=== PATIENT | male | born 1945 | race Asian ===

== ENCOUNTER 2016-11-12 00:54 | Observation (INO) | payer MEDICARE, OTHER ==
[2016-11-12] VITALS (8 sets, daily range): BP systolic 124–130; BP diastolic 68–86
[~2016-11-12] VITALS: Ht 177.8 cm; Wt 120.2 kg
[2016-11-12] MEDS ORDERED: TAMS0.4C31 PO (01:16)
[2016-11-12] MEDS ORDERED: FURO20TA4 PO (01:16)
[2016-11-12] MEDS ORDERED: WARF5TAB73 PO (01:17)
[2016-11-12] MEDS ORDERED: DOCU-150 PO (01:17)
[2016-11-12] MEDS ORDERED: FUROSEMIDE 40MG/4ML VIAL IV ONE (02:45)
[2016-11-12 02:55] LABS: BASOPHILS % 1.1 % (0.0-2.0); DIFFERENTIAL COMMENT 0; EOSINOPHILS % 4.9 % (0.0-5.0); HEMATOCRIT. 40.5 % (42.0-52.0); HEMOGLOBIN. 13.7 g/dL (14.0-18.0); LYMPHOCYTES % 29.6 % (20.0-50.0); MEAN CORPUSCULAR HEMOGLOBIN 31.9 pg (28.0-32.0); MEAN CORPUSCULAR HGB CONC 33.9 g/dL (31.0-37.0); MEAN CORPUSCULAR VOLUME 94.2 fL (80.0-94.0); MEAN PLATELET VOLUME 8.1 fl (7.4-10.4); MONOCYTES % 9.4 % (2.0-8.0); PLATELET 243 x1000/uL (130-400); RED CELL DISTRIBUTION WIDTH 21.4 % (11.6-14.6); WHITE BLOOD COUNT 5.7 x1000/uL (4.5-11.0)
[2016-11-12 03:10] LABS: ALANINE AMINOTRANSFERASE 24 IU/L (13-61); ALBUMIN 3.6 g/dL (3.4-5.0); ANION GAP 11; CALCIUM 8.9 mg/dL (8.5-10.1); CARBON DIOXIDE 30 mEq/L (21-32); CHLORIDE 102 mEq/L (98-107); INDEX HEMOLYSI 2 (1-3); INDEX ICTERIC 1 (1-4); INDEX LIPEMIC 1 (1-3); NT PRO B-TYPE NATRIURETIC PEP 80 pg/mL (5-125); TROPONIN I < 0.02 ng/mL (0.00-0.04); UREA NITROGEN BLOOD 17 mg/dL (7-21); eGFR > 60 mL/min (>60)
[2016-11-12] MEDS ORDERED: HYDROCODONE/ACETAMINOPHEN 5/325MG TABLET PO PRN (10:45)
[2016-11-12] MEDS ORDERED: ACETAMINOPHEN 325MG TABLET PO PRN (10:45)
[2016-11-12] MEDS ORDERED: CLONIDINE 0.1MG TABLET PO PRN (10:45)
[2016-11-12] MEDS ORDERED: IPRATROPIUM/ALBUTEROL 0.5-3(2.5)MG/3ML NEB INH PRN (10:45)
[2016-11-12] MEDS: FUROSEMIDE 40MG/4ML VIAL IV SCH (11:05)
[2016-11-12 12:40] LABS: PARTIAL THROMBOPLASTIN TIME 54.8 sec (24.0-34.0); PROTHROMBIN TIME 51.8 sec
[2016-11-12 13:11] LABS: ANION GAP 15; CALCIUM 9.3 mg/dL (8.5-10.1); CARBON DIOXIDE 28 mEq/L (21-32); CHLORIDE 100 mEq/L (98-107); INDEX HEMOLYSI 1 (1-3); INDEX ICTERIC 1 (1-4); INDEX LIPEMIC 1 (1-3); UREA NITROGEN BLOOD 17 mg/dL (7-21); eGFR > 60 mL/min (>60)
[2016-11-12 13:38] LABS: INR 4.9
[2016-11-12 14:15] LABS: CREATINE KINASE 400 IU/L (39-308); INDEX HEMOLYSI 1 (1-3); TROPONIN I < 0.02 ng/mL (0.00-0.04)
[2016-11-12 23:50] LABS: CREATINE KINASE 406 IU/L (39-308); INDEX HEMOLYSI 2 (1-3); TROPONIN I < 0.02 ng/mL (0.00-0.04)
[2016-11-13] VITALS: BP 113/71
[2016-11-13 04:00] VITALS: BP 110/80
[2016-11-13 06:35] LABS: BASOPHILS % 0.4 % (0.0-2.0); HEMATOCRIT. 40.3 % (42.0-52.0); HEMOGLOBIN. 13.7 g/dL (14.0-18.0); LYMPHOCYTES % 32.3 % (20.0-50.0); MEAN CORPUSCULAR HEMOGLOBIN 32.8 pg (28.0-32.0); MEAN CORPUSCULAR HGB CONC 33.9 g/dL (31.0-37.0); MEAN CORPUSCULAR VOLUME 96.7 fL (80.0-94.0); MEAN PLATELET VOLUME 8.2 fl (7.4-10.4); MONOCYTES % 11.1 % (2.0-8.0); NEUTROPHILS % 51.2 % (40.0-76.0); PLATELET 212 x1000/uL (130-400); RED BLOOD CELL COUNT 4.17 mill/uL (4.7-6.1); RED CELL DISTRIBUTION WIDTH 22.2 % (11.6-14.6); WHITE BLOOD COUNT 6.5 x1000/uL (4.5-11.0)
[2016-11-13 07:11] LABS: DIFFERENTIAL COMMENT 1
[2016-11-13 07:12] LABS: ADD RBC MORPHOLOGY YES
[2016-11-13 08:00] VITALS: BP 116/73
[2016-11-13 09:11] LABS: T4 FREE 1.44 ng/dL (0.76-1.46); THYROID STIMULATING HORMONE 2.4 uIU/mL (0.36-3.74)
[2016-11-13 10:00] LABS: INR 3.2; PROTHROMBIN TIME 33.7 sec
[2016-11-13] MEDS: FUROSEMIDE 40MG/4ML VIAL IV SCH (10:08)
[2016-11-13 12:00] VITALS: BP 130/80
[2016-11-13 13:44] LABS: ANISOCYTOSIS 2+
[2016-11-13 13:45] LABS: PLATELET ESTIMATE NORMAL
[2016-11-13 14:01] VITALS: BP 130/80
[2016-11-13] MEDS ORDERED: WARFARIN SODIUM 5MG TABLET PO SCH (18:00)
== END 2016-11-13 14:35 | disposition home or self-care (01) ==
LOC: ER 00:54 → 6WST 08:29 → INTOOBSV 08:29
PROVIDERS: ADMIT Internal Medicine; ATTEND Internal Medicine
DX: R60.0 Localized edema (principal); I50.9 Heart failure, unspecified; I48.91 Unspecified atrial fibrillation; L53.9 Erythematous condition, unspecified; N40.0 Benign prostatic hyperplasia without lower urinary tract symptoms
CPT/HCPCS: 36415; 71010; 73030; 73221; 80048; 80053; 80061; 82550; 83880; 84439; 84443; 84484; 85025; 85610; 85730; 93005; 93970; 96374; 96376; 97162; 99285; G0378; J1940

== ENCOUNTER 2019-07-02 21:46 | Emergency (ER) | payer OTHER ==
[~2019-07-02] VITALS: Ht 182.9 cm; Wt 137.0 kg
[~2019-07-02 21:46] MED LIST: DOCU-150 PO; FURO20TA4 PO; TAMS0.4C31 PO; WARF-53 PO
[2019-07-03 00:36] LABS: HEMOGLOBIN 12.6 g/dL (14.0-18.0); MEAN CORPUSCULAR HEMOGLOBIN 32.5 pg (28.0-32.0); MEAN CORPUSCULAR VOLUME 95.1 fL (80.0-94.0); PLATELET 273 x1000/uL (130-400); RED BLOOD CELL COUNT 3.89 mill/uL (4.7-6.1); RED CELL DISTRIBUTION WIDTH 21.9 % (11.6-14.6)
[2019-07-03 00:47] LABS: CHLORIDE 104 mEq/L (98-107)
[2019-07-03 01:18] LABS: INR 0.9; PARTIAL THROMBOPLASTIN TIME 26.8 sec (23.4-31.0); PROTHROMBIN TIME 9.6 sec (9.6-11.0)
[2019-07-03] MEDS ORDERED: HYDROCODONE/ACETAMINOPHEN 10/325MG TABLET PO NR (01:45)
[2019-07-03 02:12] VITALS: BP 154/70
== END 2019-07-03 02:14 | disposition home or self-care (01) ==
LOC: ER 21:46
DX: M25.562 Pain in left knee (principal); M25.561 Pain in right knee; W18.39XA Other fall on same level, initial encounter; Y93.89 Activity, other specified; Y92.89 Other specified places as the place of occurrence of the external cause; Y99.8 Other external cause status; Z79.899 Other long term (current) drug therapy
CPT/HCPCS: 36415; 73562; 85027; 86850; 86900; 99284

== ENCOUNTER 2019-08-15 05:44 | Emergency (ER) | payer OTHER ==
[~2019-08-15] VITALS: Ht 175.3 cm; Wt 143.0 kg
[2019-08-15] MEDS ORDERED: FUROSEMIDE 100MG/10ML VIAL IVP ONE (07:00)
[2019-08-15 07:20] LABS: EOSINOPHILS % 1.5 % (0.0-5.0); HEMATOCRIT. 35.1 % (42.0-52.0); HEMOGLOBIN. 11.9 g/dL (14.0-18.0); LYMPHOCYTES % 17.9 % (20.0-50.0); MEAN CORPUSCULAR HEMOGLOBIN 32.3 pg (28.0-32.0); MEAN CORPUSCULAR VOLUME 95.4 fL (80.0-94.0); MEAN PLATELET VOLUME 7.6 fl (7.4-10.4); NEUTROPHILS % 71.6 % (40.0-76.0); PLATELET 275 x1000/uL (130-400); RED BLOOD CELL COUNT 3.68 mill/uL (4.7-6.1); RED CELL DISTRIBUTION WIDTH 21.7 % (11.6-14.6)
[2019-08-15 07:27] LABS: CHLORIDE 104 mEq/L (98-107)
[2019-08-15 16:55] VITALS: BP 139/78
== END 2019-08-15 17:10 | disposition home or self-care (01) ==
LOC: ER 05:44
DX: S80.02XA Contusion of left knee, initial encounter (principal); S80.01XA Contusion of right knee, initial encounter; W10.8XXA Fall (on) (from) other stairs and steps, initial encounter; Y93.01 Activity, walking, marching and hiking; Y92.89 Other specified places as the place of occurrence of the external cause; I11.0 Hypertensive heart disease with heart failure; I50.9 Heart failure, unspecified; I48.91 Unspecified atrial fibrillation; E11.9 Type 2 diabetes mellitus without complications; Z79.01 Long term (current) use of anticoagulants; Z79.899 Other long term (current) drug therapy
CPT/HCPCS: 36415; 71045; 80053; 83880; 84484; 85025; 93005; 93970; 96374; 99284; J1940; A4315

== ENCOUNTER 2019-09-01 08:57 | Inpatient (IN) | payer OTHER ==
[~2019-09-01] VITALS: Ht 188 cm; Wt 133.4 kg
[2019-09-01 12:11] LABS: BASOPHILS % 0.4 % (0.0-2.0); EOSINOPHILS % 1.2 % (0.0-5.0); HEMATOCRIT. 38.7 % (42.0-52.0); HEMOGLOBIN. 12.9 g/dL (14.0-18.0); LYMPHOCYTES % 24.4 % (20.0-50.0); MEAN CORPUSCULAR HEMOGLOBIN 31.8 pg (28.0-32.0); MEAN CORPUSCULAR VOLUME 95.3 fL (80.0-94.0); MEAN PLATELET VOLUME 7.5 fl (7.4-10.4); MONOCYTES % 7.2 % (2.0-8.0); NEUTROPHILS % 66.8 % (40.0-76.0); PLATELET 271 x1000/uL (130-400); RED BLOOD CELL COUNT 4.06 mill/uL (4.7-6.1); RED CELL DISTRIBUTION WIDTH 21.5 % (11.6-14.6)
[2019-09-01 12:20] LABS: CHLORIDE 100 mEq/L (98-107)
[2019-09-01] MEDS ORDERED: HYDRALAZINE 20MG/ML VIAL IV ONE (12:30)
[2019-09-01] MEDS ORDERED: NA PHOS,M-B/NA PHOS,DI-BA ENEMA 118ML PR PRN (15:45)
[2019-09-01] MEDS ORDERED: DOCUSATE SODIUM 100MG CAPSULE PO PRN (15:45)
[2019-09-01] MEDS ORDERED: GUAIFENESIN 200MG/10ML SUGAR FREE UDC PO PRN (15:45)
[2019-09-01] MEDS ORDERED: ACETAMINOPHEN 325MG TABLET PO PRN (15:45)
[2019-09-01] MEDS ORDERED: ACETAMINOPHEN 650MG SUPP PR PRN (15:45)
[2019-09-01] MEDS ORDERED: LORAZEPAM 0.5MG TABLET PO PRN (15:45)
[2019-09-01] MEDS ORDERED: DEXTROSE 50% WATER 50ML SYRINGE IV PRN (15:45)
[2019-09-01] MEDS ORDERED: IPRATROPIUM/ALBUTEROL 0.5-3(2.5)MG/3ML NEB NEB PRN (15:45)
[2019-09-01] MEDS ORDERED: CLONIDINE 0.1MG TABLET PO PRN (15:45)
[2019-09-01] MEDS ORDERED: HYDRALAZINE 20MG/ML VIAL IV PRN (15:45)
[2019-09-01] MEDS ORDERED: ONDANSETRON HCL 4MG/2ML INJ IV PRN (15:45)
[2019-09-01] MEDS ORDERED: HYDROCODONE/ACETAMINOPHEN 5/325MG TABLET PO PRN (15:45)
[2019-09-01] MEDS ORDERED: MAGNESIUM/ALUMINUM HYDROXIDE/SIMETHICONE 30ML UDC PO PRN (15:45)
[2019-09-01] MEDS ORDERED: CEFTRIAXONE 1 G PREMIX 50 ML IV NR (16:00)
[2019-09-01] MEDS: INSULIN LISPRO 100 UNITS/ML SUBCUT SCH (17:25)
[2019-09-01] MEDS: BLOOD SUGAR DIAGNOSTIC STRIP TEST SCH (17:26)
[2019-09-01 17:49] LABS: BG BASE EXCESS 7.1 mmol/L (-2.0-2.0); BG CARBOXYHEMOGLOBIN 0.6 % (0.5-1.5); BG DEOXYHEMOGLOBIN 5.9 % (0.0-5.0); BG METHEMOGLOBIN 0.2 % (0.0-1.5); BG OXYGEN SATURATION 94.1 % (92.0-98.5); BG OXYHEMOGLOBIN 93.3 % (94.0-97.0); BG PCO2 46.4 mmHg (35.0-45.0); BG PH 7.456 (7.350-7.450); BG PO2 71.8 mmHg (75.0-100.0); BG SAMPLE SITE RIGHT RADIAL; BG TOTAL HEMOGLOBIN 13.1 g/dL (12.0-18.0); BG VENT MODE ROOM AIR
[2019-09-01] MEDS ORDERED: IOHEXOL-350 100 ML BOTTLE ONE (22:59)
[2019-09-01 23:44] VITALS: BP 143/58
[2019-09-02 00:56] VITALS: BP 143/58
[2019-09-02] MEDS ORDERED: ENOXAPARIN 150MG/ML SYR SUBCUT SCH ×2 (02:00→04:00)
[2019-09-02] MEDS ORDERED: ATOR10TA69 MT (03:35)
[2019-09-02] MEDS ORDERED: ASPI-1497 PO (03:36)
[2019-09-02] MEDS ORDERED: LISI10TA5 MT (03:36)
[2019-09-02 04:00] VITALS: BP 138/55
[2019-09-02] MEDS: BLOOD SUGAR DIAGNOSTIC STRIP TEST SCH ×4 (06:55→21:02)
[2019-09-02 07:47] LABS: CHLORIDE 102 mEq/L (98-107)
[2019-09-02 07:59] LABS: BASOPHILS % 0.4 % (0.0-2.0); EOSINOPHILS % 2.4 % (0.0-5.0); HEMATOCRIT. 33.3 % (42.0-52.0); HEMOGLOBIN. 11.4 g/dL (14.0-18.0); LYMPHOCYTES % 20.3 % (20.0-50.0); MEAN CORPUSCULAR HEMOGLOBIN 32.3 pg (28.0-32.0); MEAN CORPUSCULAR VOLUME 94.7 fL (80.0-94.0); MEAN PLATELET VOLUME 7.8 fl (7.4-10.4); MONOCYTES % 8.5 % (2.0-8.0); NEUTROPHILS % 68.4 % (40.0-76.0); PLATELET 247 x1000/uL (130-400); RED BLOOD CELL COUNT 3.51 mill/uL (4.7-6.1); RED CELL DISTRIBUTION WIDTH 21.3 % (11.6-14.6)
[2019-09-02 08:00] VITALS: BP 126/54
[2019-09-02 08:00] LABS: CREATINE KINASE MB FRACTION 2.9 ng/mL (0.5-3.6); T4 FREE 1.26 ng/dL (0.76-1.46)
[2019-09-02 08:02] LABS: LDL CHOLESTEROL 58 mg/dL (5-100)
[2019-09-02 08:03] LABS: CREATINE KINASE 243 IU/L (39-308); HDL CHOLESTEROL 45 mg/dL (40-59)
[2019-09-02] MEDS: INSULIN LISPRO 100 UNITS/ML SUBCUT SCH ×4 (09:31→21:23)
[2019-09-02 12:00] VITALS: BP 129/62
[2019-09-02 16:00] VITALS: BP 120/69
[2019-09-02] MEDS ORDERED: CEFTRIAXONE 1 G PREMIX 50 ML IV SCH (16:00)
[2019-09-02] MEDS: CEFTRIAXONE 1 G PREMIX 50 ML IV SCH (17:07)
[2019-09-02] MEDS: ENOXAPARIN 40MG/0.4ML SYR SUBCUT SCH (20:24)
[2019-09-02] MEDS: DIPHENHYDRAMINE 50MG/ML VIAL IV PRN (20:53)
[2019-09-03] VITALS: BP 109/49
[2019-09-03 04:00] VITALS: BP 126/52
[2019-09-03] MEDS: BLOOD SUGAR DIAGNOSTIC STRIP TEST SCH ×4 (05:57→20:46)
[2019-09-03 06:34] LABS: HEMOGLOBIN 11.9 g/dL (14.0-18.0); MEAN CORPUSCULAR HEMOGLOBIN 32.1 pg (28.0-32.0); MEAN CORPUSCULAR VOLUME 96.7 fL (80.0-94.0); PLATELET 242 x1000/uL (130-400); RED BLOOD CELL COUNT 3.73 mill/uL (4.7-6.1); RED CELL DISTRIBUTION WIDTH 21.8 % (11.6-14.6)
[2019-09-03] MEDS: INSULIN LISPRO 100 UNITS/ML SUBCUT SCH ×4 (07:46→20:48)
[2019-09-03 08:00] VITALS: BP 136/102
[2019-09-03 08:12] LABS: CHLORIDE 103 mEq/L (98-107)
[2019-09-03] MEDS: ENOXAPARIN 40MG/0.4ML SYR SUBCUT SCH (09:56)
[2019-09-03 12:00] VITALS: BP 128/74
[2019-09-03 16:00] VITALS: BP 139/57
[2019-09-03] MEDS: CEFTRIAXONE 1 G PREMIX 50 ML IV SCH (18:27)
[2019-09-03 20:00] VITALS: BP 137/56
[2019-09-04] VITALS (37 sets, daily range): BP systolic 102–221; BP diastolic 47–108
[2019-09-04 01:30] LABS: CLARITY URINE CLEAR (CLEAR); COLOR URINE YELLOW (YELLOW); KETONES URINE NEGATIVE (NEGATIVE); LEUKOCYTE ESTERASE URINE NEGATIVE (NEGATIVE); NITRITE URINE NEGATIVE (NEGATIVE); OCCULT BLOOD URINE 1+ (NEGATIVE); PH URINE 8.5 (4.5-8.0); PROTEIN URINE NEGATIVE (NEGATIVE); SPECIFIC GRAVITY URINE 1.013 (1.005-1.030); UROBILINOGEN URINE 0.2 E.U./dL (0.2-1.0)
[2019-09-04] MEDS: BLOOD SUGAR DIAGNOSTIC STRIP TEST SCH ×4 (06:04→21:00)
[2019-09-04] MEDS: DEXAMETHASONE 4MG/ML 1ML VIAL IV SCH ×4 (07:02→23:14)
[2019-09-04] MEDS: INSULIN LISPRO 100 UNITS/ML SUBCUT SCH ×4 (08:04→23:15)
[2019-09-04] MEDS ORDERED: BACITRACIN 15GM TUBE TOP ONE (10:48)
[2019-09-04] MEDS ORDERED: THROMBIN (BOVINE) 5000 UNITS/VIAL TOP ONE (11:57)
[2019-09-04] MEDS ORDERED: LIDOCAINE HCL/EPINEPHRINE 1%-EPI 1:100,000 20 ML VIAL ONE (11:58)
[2019-09-04] MEDS ORDERED: BACITRACIN 50,000 UNITS/VIAL ONE (11:58)
[2019-09-04] MEDS ORDERED: NEOSTIGMINE METHYLSULFATE 1MG/ML 10 ML VIAL ONE (12:58)
[2019-09-04] MEDS ORDERED: FENTANYL CITRATE/PF 50MCG/ML 2ML VIAL ONE ×2 (12:58→13:57)
[2019-09-04] MEDS ORDERED: ROCURONIUM BROMIDE 10MG/ML VIAL 5ML IV ONE ×3 (12:58→15:21)
[2019-09-04] MEDS ORDERED: METOCLOPRAMIDE HCL 10MG/2ML VIAL ONE (12:59)
[2019-09-04] MEDS ORDERED: GLYCOPYRROLATE 0.2 MG/ML 2ML VIAL ONE (12:59)
[2019-09-04] MEDS ORDERED: LIDOCAINE HCL/PF 1% 10 MG/ML 5ML VIAL ONE (12:59)
[2019-09-04] MEDS ORDERED: ONDANSETRON HCL 4MG/2ML INJ ONE (12:59)
[2019-09-04] MEDS ORDERED: PROPOFOL 200MG/20ML VIAL IV ONE (12:59)
[2019-09-04 13:11] LABS: BASOPHILS % 0.3 % (0.0-2.0); EOSINOPHILS % 0.1 % (0.0-5.0); HEMATOCRIT. 37.3 % (42.0-52.0); HEMOGLOBIN. 12.5 g/dL (14.0-18.0); LYMPHOCYTES % 11.7 % (20.0-50.0); MEAN CORPUSCULAR HEMOGLOBIN 31.5 pg (28.0-32.0); MEAN PLATELET VOLUME 7.6 fl (7.4-10.4); NEUTROPHILS % 86.9 % (40.0-76.0); PLATELET 244 x1000/uL (130-400); RED BLOOD CELL COUNT 3.97 mill/uL (4.7-6.1); RED CELL DISTRIBUTION WIDTH 22.2 % (11.6-14.6)
[2019-09-04] MEDS ORDERED: CEFAZOLIN SODIUM 1000MG/VIAL ONE (13:53)
[2019-09-04 13:55] LABS: CHLORIDE 104 mEq/L (98-107)
[2019-09-04 14:24] LABS: PLATELET ESTIMATE NORMAL
[2019-09-04] MEDS ORDERED: DEXAMETHASONE 4MG/ML 1ML VIAL ONE (14:28)
[2019-09-04] MEDS: MORPHINE SULFATE 4 MG/ML CPJ (NOT FOR IM USE) IV PRN ×2 (15:48→18:19)
[2019-09-04] MEDS ORDERED: NICARDIPINE 100 MG in SODIUM CHLORIDE 0.9% 60 ML IV PRN (16:00)
[2019-09-04] MEDS ORDERED: MORPHINE SULFATE 4 MG/ML CPJ (NOT FOR IM USE) IV NR (16:00)
[2019-09-04] MEDS: DEXT 5%/LACTATED RINGERS 1,000 ML IV SCH ×2 (16:20→23:15)
[2019-09-04 17:00] LABS: BG BASE EXCESS -4.5 mmol/L (-2.0-2.0); BG CARBOXYHEMOGLOBIN 0.5 % (0.5-1.5); BG DEOXYHEMOGLOBIN 0.9 % (0.0-5.0); BG METHEMOGLOBIN 0.5 % (0.0-1.5); BG OXYGEN SATURATION 99.1 % (92.0-98.5); BG OXYHEMOGLOBIN 98.1 % (94.0-97.0); BG PH 7.298 (7.350-7.450); BG PO2 198.6 mmHg (75.0-100.0); BG SAMPLE SITE A-LINE; BG TIDAL VOLUME(mL) 500 mL; BG TOTAL HEMOGLOBIN 13.5 g/dL (12.0-18.0); BG VENT MODE VENT - A/C; BG VENT RATE 10 set
[2019-09-04] MEDS: PROPOFOL 10MG/ML 100ML 100 ML IV PRN ×3 (17:00→22:29)
[2019-09-04] MEDS: CEFTRIAXONE 1 G PREMIX 50 ML IV SCH (23:29)
[2019-09-05] VITALS (92 sets, daily range): BP systolic 85–179; BP diastolic 4–118
[2019-09-05] MEDS: PROPOFOL 10MG/ML 100ML 100 ML IV PRN ×2 (01:01→05:05)
[2019-09-05 04:37] LABS: BASOPHILS % 0.1 % (0.0-2.0); HEMATOCRIT. 33.4 % (42.0-52.0); HEMOGLOBIN. 11.2 g/dL (14.0-18.0); LYMPHOCYTES % 8.2 % (20.0-50.0); MEAN CORPUSCULAR HEMOGLOBIN 32.1 pg (28.0-32.0); MEAN CORPUSCULAR VOLUME 95.9 fL (80.0-94.0); MEAN PLATELET VOLUME 8.1 fl (7.4-10.4); MONOCYTES % 2.5 % (2.0-8.0); NEUTROPHILS % 89.2 % (40.0-76.0); PLATELET 277 x1000/uL (130-400); RED BLOOD CELL COUNT 3.48 mill/uL (4.7-6.1); RED CELL DISTRIBUTION WIDTH 20.9 % (11.6-14.6)
[2019-09-05 05:17] LABS: CHLORIDE 105 mEq/L (98-107)
[2019-09-05] MEDS: BLOOD SUGAR DIAGNOSTIC STRIP TEST SCH ×4 (06:54→20:48)
[2019-09-05] MEDS: DEXAMETHASONE 4MG/ML 1ML VIAL IV SCH ×3 (06:57→17:53)
[2019-09-05] MEDS: INSULIN LISPRO 100 UNITS/ML SUBCUT SCH ×4 (06:58→20:52)
[2019-09-05 09:07] LABS: BG BASE EXCESS -1.9 mmol/L (-2.0-2.0); BG DEOXYHEMOGLOBIN 0.4 % (0.0-5.0); BG FRACTION INSPIRED OXYGEN 100; BG HCO3 ACT 22.6 mmol/L (22.0-26.0); BG METHEMOGLOBIN 0.2 % (0.0-1.5); BG OXYGEN SATURATION 99.6 % (92.0-98.5); BG OXYHEMOGLOBIN 99.4 % (94.0-97.0); BG PCO2 37.8 mmHg (35.0-45.0); BG PH 7.395 (7.350-7.450); BG PO2 395.2 mmHg (75.0-100.0); BG SAMPLE SITE A-LINE; BG TOTAL HEMOGLOBIN 12.8 g/dL (12.0-18.0); BG VENT MODE MASK - NRB
[2019-09-05] MEDS: DEXT 5%/LACTATED RINGERS 1,000 ML IV SCH ×2 (12:16→16:17)
[2019-09-05] MEDS: CEFTRIAXONE 1 G PREMIX 50 ML IV SCH (16:17)
[2019-09-06] VITALS (40 sets, daily range): BP systolic 124–171; BP diastolic 53–131
[2019-09-06] MEDS: DEXT 5%/LACTATED RINGERS 1,000 ML IV SCH (00:01)
[2019-09-06] MEDS: DEXAMETHASONE 4MG/ML 1ML VIAL IV SCH ×2 (00:01→06:49)
[2019-09-06 05:29] LABS: HEMATOCRIT 36.5 % (42.0-52.0); MEAN CORPUSCULAR HEMOGLOBIN 32.4 pg (28.0-32.0); MEAN CORPUSCULAR VOLUME 98.2 fL (80.0-94.0); PLATELET 267 x1000/uL (130-400); RED BLOOD CELL COUNT 3.72 mill/uL (4.7-6.1); RED CELL DISTRIBUTION WIDTH 21.4 % (11.6-14.6)
[2019-09-06 05:51] LABS: CHLORIDE 107 mEq/L (98-107)
[2019-09-06] MEDS: BLOOD SUGAR DIAGNOSTIC STRIP TEST SCH ×4 (06:41→20:43)
[2019-09-06] MEDS: INSULIN LISPRO 100 UNITS/ML SUBCUT SCH ×4 (06:50→20:47)
[2019-09-06] MEDS: CEFTRIAXONE 1 G PREMIX 50 ML IV SCH (16:21)
[2019-09-07] VITALS: BP 136/62
[2019-09-07] MEDS: DIPHENHYDRAMINE 50MG/ML VIAL IV PRN (02:01)
[2019-09-07 04:00] VITALS: BP 139/69
[2019-09-07] MEDS: BLOOD SUGAR DIAGNOSTIC STRIP TEST SCH ×4 (06:48→21:29)
[2019-09-07 07:13] LABS: CHLORIDE 107 mEq/L (98-107)
[2019-09-07 07:23] LABS: HEMATOCRIT 34.5 % (42.0-52.0); HEMOGLOBIN 11.8 g/dL (14.0-18.0); MEAN CORPUSCULAR HEMOGLOBIN 32.4 pg (28.0-32.0); MEAN CORPUSCULAR VOLUME 94.3 fL (80.0-94.0); PLATELET 258 x1000/uL (130-400); RED BLOOD CELL COUNT 3.65 mill/uL (4.7-6.1); RED CELL DISTRIBUTION WIDTH 21.9 % (11.6-14.6)
[2019-09-07] MEDS: INSULIN LISPRO 100 UNITS/ML SUBCUT SCH ×4 (08:51→21:00)
[2019-09-07 12:00] VITALS: BP 143/64
[2019-09-07 16:00] VITALS: BP 130/64
[2019-09-07] MEDS: CEFTRIAXONE 1 G PREMIX 50 ML IV SCH (17:21)
[2019-09-07 20:23] VITALS: BP 112/70
[2019-09-08] VITALS: BP 155/68
[2019-09-08 04:00] VITALS: BP 136/75
[2019-09-08] MEDS: BLOOD SUGAR DIAGNOSTIC STRIP TEST SCH ×4 (07:28→20:33)
[2019-09-08 07:40] LABS: CHLORIDE 104 mEq/L (98-107)
[2019-09-08] MEDS: INSULIN LISPRO 100 UNITS/ML SUBCUT SCH ×4 (07:50→20:33)
[2019-09-08 08:00] VITALS: BP 143/69
[2019-09-08 10:27] LABS: HEMOGLOBIN 11.8 g/dL (14.0-18.0); MEAN CORPUSCULAR VOLUME 95.1 fL (80.0-94.0); PLATELET 252 x1000/uL (130-400); RED BLOOD CELL COUNT 3.68 mill/uL (4.7-6.1); RED CELL DISTRIBUTION WIDTH 21.1 % (11.6-14.6)
[2019-09-08 12:05] VITALS: BP 144/62
[2019-09-08 16:00] VITALS: BP 128/66
[2019-09-08] MEDS: CEFTRIAXONE 1 G PREMIX 50 ML IV SCH (16:56)
[2019-09-08 20:00] VITALS: BP 148/74
[2019-09-09] VITALS: BP 136/67
[2019-09-09 04:00] VITALS: BP 121/62
[2019-09-09] MEDS: BLOOD SUGAR DIAGNOSTIC STRIP TEST SCH ×3 (06:51→17:58)
[2019-09-09 08:00] VITALS: BP 122/59
[2019-09-09] MEDS: INSULIN LISPRO 100 UNITS/ML SUBCUT SCH ×3 (08:01→18:18)
[2019-09-09 12:00] VITALS: BP 148/58
[2019-09-09] MEDS ORDERED: MORPHINE SULFATE 4 MG/ML CPJ (NOT FOR IM USE) IV PRN (15:15)
[2019-09-09] MEDS ORDERED: HYDROCODONE/APAP 7.5/325MG 1 TAB TABLET PO PRN (15:15)
[2019-09-09 16:00] VITALS: BP 118/56
[2019-09-09] MEDS: CEFTRIAXONE 1 G PREMIX 50 ML IV SCH (16:12)
[2019-09-09 18:27] VITALS: BP 118/56
[2019-09-09] MEDS ORDERED: HYDRALAZINE 10 MG in SODIUM CHLORIDE 0.9% 49.5 ML IV PRN (19:00)
== END 2019-09-09 20:30 | DRG 471 ==
LOC: ER 09:18 → 7WST 13:58 → SUPCPDRO 15:28 → ENRESERV 21:59 → MICUNO 09-04 15:03 → 6EST 09-06 17:30
PROVIDERS: ADMIT Internal Medicine; ATTEND Internal Medicine
PROC: 0RG2071 Fusion of 2 or more Cervical Vertebral Joints with Autologous Tissue Substitute, Posterior Approach, Posterior Column, Open Approach (ICD-10-PCS; principal; 2019-09-04)
PROC: 01N10ZZ Release Cervical Nerve, Open Approach (ICD-10-PCS; 2019-09-04)
PROC: 0RB30ZZ Excision of Cervical Vertebral Disc, Open Approach (ICD-10-PCS; 2019-09-04)
PROC: 4A11X4G Monitoring of Peripheral Nervous Electrical Activity, Intraoperative, External Approach (ICD-10-PCS; 2019-09-04)
PROC: BR141ZZ Fluoroscopy of Cervical Facet Joint(s) using Low Osmolar Contrast (ICD-10-PCS; 2019-09-04)
DX: M48.02 Spinal stenosis, cervical region (principal); G82.50 Quadriplegia, unspecified; I50.43 Acute on chronic combined systolic (congestive) and diastolic (congestive) heart failure; D68.59 Other primary thrombophilia; E66.2 Morbid (severe) obesity with alveolar hypoventilation; R17 Unspecified jaundice; I82.5Z3 Chronic embolism and thrombosis of unspecified deep veins of distal lower extremity, bilateral; L03.116 Cellulitis of left lower limb; L03.115 Cellulitis of right lower limb; M47.12 Other spondylosis with myelopathy, cervical region; D64.9 Anemia, unspecified; E11.41 Type 2 diabetes mellitus with diabetic mononeuropathy; E11.65 Type 2 diabetes mellitus with hyperglycemia; I11.0 Hypertensive heart disease with heart failure; I16.0 Hypertensive urgency; M47.816 Spondylosis without myelopathy or radiculopathy, lumbar region; M48.061 Spinal stenosis, lumbar region without neurogenic claudication; N40.0 Benign prostatic hyperplasia without lower urinary tract symptoms; R29.6 Repeated falls; M17.11 Unilateral primary osteoarthritis, right knee; M43.10 Spondylolisthesis, site unspecified; M47.817 Spondylosis without myelopathy or radiculopathy, lumbosacral region; I48.91 Unspecified atrial fibrillation; M47.22 Other spondylosis with radiculopathy, cervical region; M48.07 Spinal stenosis, lumbosacral region; W01.0XXA Fall on same level from slipping, tripping and stumbling without subsequent striking against object, initial encounter; Z79.899 Other long term (current) drug therapy; Z68.37 Body mass index [BMI] 37.0-37.9, adult
CPT/HCPCS: 31500; 36415; 36600; 71045; 71275; 72040; 72131; 72141; 72148; 73130; 73562; 76000; 80048; 80053; 80061; 81003; 82375; 82550; 82553; 82805; 82962; 83036; 83880; 84153; 84439; 84443; 84478; 84484; 85025; 85027; 86850; 86900; 88304; 88311; 93005; 93306; 93970; 94002; 96365; 97110; 97162; 97164; 97166; 97530; 97535; 99291; C1713; G0378; J0360; J0690; J0696; J1100; J1200; J1650; J1815; J2270; J2405; J2704; J2710; J2765; J3010; J3490; J7040; J7121; J7620; L0172; Q9967; A4315; G0103